=== PATIENT | female | born 1950 | race Caucasian/White ===

== ENCOUNTER → 2018-09-10 11:36 | Outpatient (CLI) | payer MEDICARE, OTHER, SELFPAY ==
[2018-09-10 12:35] LABS: Erythrocyte Sedimentation Rate 16 MM/HR (0-20)
[2018-09-10 14:03] LABS: Thyroid Stimulating Hormone 1.32 uIU/mL (0.47-4.68)
== END ==
PROVIDERS: PCP Internal Medicine; Visit Provider Family Medicine
DX: R51 Headache (principal); R42 Dizziness and giddiness
CPT/HCPCS: 36415; 84443; 85651

== ENCOUNTER → 2021-03-05 14:48 | Outpatient (CLI) | payer MEDICARE, OTHER, SELFPAY ==
--- NOTE | 2021-03-05 14:52 | DI.MRI.S_ITS ---
PROCEDURE: MR THORACIC SPINE WO CON INDICATIONS: Nerve root and plexus disorder, unspecified TECHNIQUE: Noncontrast sagittal T1 spine echo and T2 fast spin echo, sagittal STIR, axial T1 and T2 fast spin echo through the thoracic spine. COMPARISON: None. FINDINGS: Image quality: Diagnostic, with note made of motion artifact. Alignment and Curvature: There is normal bony alignment. Bone Marrow: Marrow is of normal overall signal. No acute vertebral body compression fractures. Spinal Cord: Visualized spinal cord is normal in size and signal. Paraspinous Soft Tissues: No paravertebral masses. Miscellaneous: At the T6-T7 level, there is a large central/right disc extrusion, with severe central canal narrowing. There is flattening of the ventral spinal cord, which is displaced to the left side. No neural foraminal narrowing is seen at this level. Milder degenerative changes are seen elsewhere. IMPRESSION: A prominent T6-T7 disc extrusion is seen, with severe central canal narrowing and ventral cord flattening, with displacement of the spinal cord to the left side. Dictated by: Lorenzo Urrutia M.D. on 03/07/2021 at 11:48 Approved by: Lorenzo Urrutia M.D. on 03/07/2021 at 11:51
== END ==
PROVIDERS: PCP Internal Medicine; Referring Provider Family Medicine; Visit Provider Family Medicine
DX: M51.24 Other intervertebral disc displacement, thoracic region (principal); R90.89 Other abnormal findings on diagnostic imaging of central nervous system
CPT/HCPCS: 72146

== ENCOUNTER → 2021-06-24 11:19 | Outpatient (CLI) | payer MEDICARE, OTHER, SELFPAY ==
--- NOTE | 2021-06-24 | DI.CT.S_ITS ---
PROCEDURE: CT THORACIC SPINE WO CON INDICATIONS: spondylosis radiculopathy, lumbar and thoracic TECHNIQUE: Noncontrast 3 mm thick sections acquired through the region of interest in the thoracic spine. Sagittal and coronal reformats were then constructed. For radiation dose reduction, the following was used: automated exposure control. COMPARISON: [facility], MR, MR THORACIC SPINE WO CON, 03/05/2021, 15:30. FINDINGS: Image quality: Excellent. Bones: There is normal overall bony alignment. No acute vertebral body compression fractures. No suspicious sclerotic or lytic bony lesions. Mild to moderate degenerative disc changes noted throughout the thoracic spine. There is a large chronic, calcified T6-T7 disc extrusion. Calcified extruded disc material causes severe central canal narrowing with compression of thoracic spinal cord. Moderate T8-T9 facet arthropathy. Severe T8-T9 neural foraminal narrowing with compression of the exiting T8 nerve roots. Soft tissues: No paravertebral masses or hematomas. Visualized posteromedial lungs appear clear. Small hiatal hernia. Status post cholecystectomy. IMPRESSION: 1. Large, chronic, calcified T6-T7 disc extrusion which causes severe central canal stenosis and compression of the thoracic spinal cord. 2. Severe bilateral T8-T9 neural foraminal narrowing with compression of the exiting T8 nerve roots. Dictated by: Mary Garcia MD, PhD on 06/24/2021 at 15:42 Approved by: Mary Garcia MD, PhD on 06/24/2021 at 15:46
--- NOTE | 2021-06-24 | DI.MRI.S_ITS ---
PROCEDURE: MR LUMBAR SPINE WO CON INDICATIONS: spondylosis radiculopathy, lumbar and thoracic TECHNIQUE: Noncontrast sagittal T1 spin echo and T2 fast echo, sagittal STIR, axial T1 and T2 fast spin echo through the lumbar spine. In cases with scoliosis, additional coronal T2 fast spin echo may be performed. COMPARISON: [facility], CR, XR LUMBAR SPINE 2 OR 3 VIEWS, 07/06/2017, 14:28. FINDINGS: Image quality: Excellent. Alignment and Curvature: 5 lumbar type vertebral bodies are present by plain film. Mild grade 1 retrolisthesis of T12 on L1, L1 on L2, and L2 on L3. Bone Marrow: Marrow is of normal overall signal. No acute vertebral body compression fractures. Moderate reactive signal within the endplates adjacent to the L4-L5 intervertebral disc. Mild reactive signal distant to the remaining lumbar and lower thoracic intervertebral discs. Spinal Cord: Conus medullaris terminates at the upper L2 level. Visualized cord demonstrates normal signal and size. Paraspinous Soft Tissues: No paravertebral masses. T12-L1: Moderate disc height loss and desiccation. Mild diffuse disc bulge. Mild facet and ligamentum flavum hypertrophy. Mild canal stenosis. No foraminal stenosis. L1-L2: Moderate disc desiccation. Mild disc height loss and diffuse disc bulge. Mild facet and ligamentum flavum hypertrophy. Mild canal stenosis. Mild bilateral foraminal stenosis. L2-L3: Moderate disc desiccation. Mild disc height loss and diffuse disc bulge. Mild facet and ligamentum flavum hypertrophy. Mild canal stenosis. Mild bilateral foraminal stenosis. L3-L4: Moderate disc desiccation. Mild disc height loss and diffuse disc bulge. Moderate facet and ligamentum flavum hypertrophy. Mild epidural lipomatosis. Severe canal stenosis. Moderate right and mild left foraminal stenosis. L4-L5: Moderate disc height loss and desiccation. Mild diffuse disc bulge. Mild facet and ligamentum flavum hypertrophy. Mild epidural lipomatosis. Mild canal stenosis. Mild bilateral foraminal stenosis. L5-S1: Moderate disc height loss and desiccation. Mild diffuse disc bulge. Mild bilateral facet hypertrophy. Mild canal stenosis. Mild left and moderate right foraminal stenosis. IMPRESSION: 1. Multilevel degenerative disc and facet disease, as well as ligamentum flavum hypertrophy and epidural lipomatosis. 2. Multilevel canal stenoses, worst at L3-L4, where there is severe canal stenosis. 3. Multilevel foraminal stenoses, worst at L3-L4 and L5-S1 where there are moderate foraminal stenoses. Dictated by: Fatemeh Stewart M.D. on 06/24/2021 at 12:47 Approved by: Fatemeh Stewart M.D. on 06/24/2021 at 13:29
== END ==
PROVIDERS: PCP Internal Medicine; Referring Provider Neurological Surgery; Visit Provider Neurological Surgery
DX: M47.26 Other spondylosis with radiculopathy, lumbar region (principal); M51.16 Intervertebral disc disorders with radiculopathy, lumbar region; M51.17 Intervertebral disc disorders with radiculopathy, lumbosacral region; M48.061 Spinal stenosis, lumbar region without neurogenic claudication; M48.07 Spinal stenosis, lumbosacral region; M54.50 Low back pain, unspecified
CPT/HCPCS: 72128; 72148

== ENCOUNTER 2023-01-21 20:32 | Emergency (ER) | payer MEDICARE, OTHER, SELFPAY ==
[2023-01-21 20:48] VITALS: BP 178/92; PULSE 107; RESP 18; TEMP 36.1; O2SAT 97
[2023-01-21 20:52] VITALS: PULSE 78
--- NOTE | 2023-01-21 20:52 | DI.RAD.S_ITS ---
PROCEDURE: XR WRIST LT MIN 3V INDICATIONS: Fall on outstretched LT hand. TECHNIQUE: 4 views of the wrist were acquired. COMPARISON: None. FINDINGS: Bones: Mildly comminuted, probably intra-articular fracture of the distal radial styloid, with volar angulation. Age indeterminate fracture of the ulnar styloid. Scaphoid view: Within normal limits. Soft tissues: No suspicious soft tissue calcifications. IMPRESSION: Angulated, probable intra-articular fracture of the radial styloid. Age indeterminate ulnar styloid fracture, probably chronic given well corticated margins. Dictated by: Orestes James M.D. on 01/21/2023 at 21:24 Approved by: Orestes James M.D. on 01/21/2023 at 21:25
--- NOTE | 2023-01-21 22:07 | ED_ITS ---
HPI - Extremity Injury (Upper) General Chief Complaint: Extremity Injury, Upper Stated Complaint: Wrist inj Time Seen by Provider: 01/21/23 21:13 Source: patient Mode of arrival: Family Vehicle Limitations: no limitations History of Present Illness HPI narrative: 72-year-old female history of hypertension, dyslipidemia, breast cancer with mastectomy, lumpectomy and reconstructive surgery and prior hysterectomy with oophorectomy for BRCA positive breast CA. presents with complaint of wrist injury. Patient was walking tripped and fell on an outstretched hand injuring her left wrist. She states has been painful since the fall. Patient states no numbness, no tingling or weakness. Pain with movement of the wrist in particular. She denies any injuries elsewhere. Denies hitting her head, no new neck or back pain. She states she has chronic neck pain always that has not changed. She denies any other chest pain, shortness of breath no GI or urinary symptoms. Patient states she takes lisinopril, atenolol, denies any anticoagulants. She states allergy to statins. She denies tobacco, alcohol or illicit. She presents with her today. Related Data Home Medications Medication Instructions Recorded Confirmed atenolol 50 mg tablet 50 mg PO DAILY 09/10/18 09/10/18 lisinopril 10 mg tablet 10 mg PO DAILY 09/10/18 09/10/18 Previous Rx's Medication Instructions Recorded acetaminophen 300 mg-codeine 15 mg 1 tab PO QID PRN pain #10 tabs 01/21/23 tablet Allergies Allergy/AdvReac Type Severity Reaction Status Date / Time No Known Drug Allergies Allergy Verified 01/21/23 20:51 Review of Systems Review of Systems ROS Unobtainable: All systems reviewed & are unremarkable except as noted in HPI and below Patient History Social History Smoking Status: Never smoker Smoking Status: Never smoker alcohol intake frequency: 0-2 drinks per day Substance Use Type: does not use Exam Narrative Exam Narrative: GENERAL: Alert and oriented x three, well-nourished female in mild distress. HEENT: Head normocephalic, atraumatic, EOMI, pupils reactive, face symmetric, moist mucous membranes NECK: Supple, full range of motion, no cervical vertebral tenderness. CARDIOVASCULAR: Regular rate and rhythm without murmurs, rubs or gallops. RESPIRATORY: Breath sounds equal bilaterally, no wheezes rales or rhonchi. ABDOMEN: Soft, nontender. Normoactive bowel sounds all 4 quadrants. No guarding or rebound, rigidity, no mass : No CVA tenderness EXTREMITIES: Normal range of motion except at the left wrist, patient has obvious deformity, swelling, no obvious ecchymosis,, no clubbing or edema. Neurovascularly intact. Patient has normal flexion, extension, abduction and adduction of the fingers, normal movement at the elbow and shoulder. 2+ radial pulse. Cap refill less than 2 seconds all 5 fingers with normal sensation throughout. NEUROLOGICAL: Cranial nerves II through XII grossly intact. Moving all extremities SKIN: Warm, dry, no petechiae, no rashes or lesions. Initial Vital Signs Initial Vital Signs: Vital Signs Temperature 97.0 F L 01/21/23 20:48 Pulse Rate 107 H 01/21/23 20:48 Respiratory Rate 18 01/21/23 20:48 Blood Pressure 178/92 H 01/21/23 20:48 Pulse Oximetry 97 01/21/23 20:48 Oxygen Delivery Method Room Air 01/21/23 20:48 Course Orders Ordered: ED Orders 01/21/23 20:52 XR wrist LT min 3V Stat Discontinued Medications Acetaminophen/Codeine Phosphate (Codeine/Acetaminophen 30/300 Tablet) 1 tab PO NOW ONE Stop: 01/21/23 22:43 Last Admin: 01/21/23 22:49 Dose: 1 tab Documented By: ES Vital Signs Vital signs: Vital Signs - 8 hr 01/21/23 22:53 Temperature 97.6 F Pulse Rate 82 Respiratory Rate 16 Blood Pressure 152/84 H Pulse Oximetry 97 Oxygen Delivery Method Room Air MDM - Extremity Injury (Upper) Imaging Data Extremity x-ray #1: Radiologist's Impression: Close Wrist X-Ray (Signed) Orestes James - 01/21/[address] (Signed) Mary Garcia - 06/24/21 Lumbar Spine MRI (Signed) Fatemeh Stewart - 06/24/21 Thoracic Spine MRI (Signed) Lorenzo Urrutia - 03/05/21 DI Result CC 07/27/18 Launch?[address] [address] XRay Report Signed Patient: Cristiana Cobb MR#: [id number] : 1950 Acct:[id number] Age/Sex: 72 / F Date of Service: 01/21/23 Loc: ED Accession Number: [id number] ?? Procedure: XR wrist LT min 3V Ordering Provider: Gillian Umaña D.O. PROCEDURE:? XR WRIST LT MIN 3V ? INDICATIONS: Fall on outstretched LT hand. ? TECHNIQUE:? 4 views of the wrist were acquired.? ? COMPARISON:? None. ? FINDINGS:? ? Bones:? Mildly comminuted, probably intra-articular fracture of the distal radial styloid, with volar angulation.? Age indeterminate fracture of the ulnar styloid. ? Scaphoid view:? Within normal limits. ? Soft tissues:? No suspicious soft tissue calcifications.? ? IMPRESSION:? Angulated, probable intra-articular fracture of the radial styloid. ? Age indeterminate ulnar styloid fracture, probably chronic given well corticated margins. ? ? Dictated by: Orestes James M.D. on 01/21/2023 at 21:24 ? ? Approved by: Orestes James M.D. on 01/21/2023 at 21:25?? MDM Narrative Medical decision making narrative: 72-year-old female ground level fall on outstretched hand who has obvious distal radial fracture. Patient had x-ray images were reviewed. Patient had hematoma block for comfort. She did not want IV pain medications procedural sedation. Deferred much for pain medication until after was treated. I did perform some mild retractions and adjustments to attempt to improve alignment. Patient's drove a vascularly intact pre and post. Splint was placed by nursing and myself. Discussed with patient will need follow up with Orthopedic surgery may require surgical repair in the future. All questions answered. Discussed return precautions. Discharge Plan Departure Patient Disposition: Home Clinical Impression: Fracture of wrist Instructions: DI for Wrist Fracture Activity Restrictions/Additional Instructions: Follow-up with orthopedic surgery, please call first thing in them morning to set up follow up in the next week. You may take 1 tablet every 6 hours of pain medication. This medication can make you sleepy do not drive, perform hazardous activities or make any major decisions while taking it. This medication will make you constipated please take a stool softener once to twice daily until stools are soft and regular. Prescription sent to the [facility] ([place], [place]) Pharmacy. Splint Care: Keep splint clean and dry. Elevated affected body part to decrease swelling. OK to use ice pack on the affected body part. Use for 15-20 minutes each time, for 5-6x per day. If you develop worsening pain, numbness, tingling, discoloration of the affected body part, loosen the splint by loosening the BALBIR wrap, and either see your doctor for an urgent re-assessment, or return to the Emergency Department. Return to the Emergency Department for any new or worsening symptoms. Prescriptions: New acetaminophen-codeine 300-15 mg tablet 1 tab PO QID PRN (Reason: pain) Qty: 10 0RF No Action lisinopril 10 mg tablet 10 mg PO DAILY atenolol 50 mg tablet 50 mg PO DAILY Referrals: Kia Cortez MD [Primary Care Provider] - Mariya Edmond MD [Physician] - Stand Alone Forms: Patient Portal/API
[2023-01-21] MEDS: CODEINE/ACETAMINOPHEN 30/300 TABLET 1 TAB PO (22:49)
[2023-01-21 22:53] VITALS: BP 152/84; PULSE 82; RESP 16; TEMP 36.4; O2SAT 97
== END 2023-01-21 22:54 | disposition home or self-care (01) ==
PROVIDERS: Emergency Provider Emergency Medicine; PCP Internal Medicine
DX: S52.502A Unspecified fracture of the lower end of left radius, initial encounter for closed fracture (principal); W18.30XA Fall on same level, unspecified, initial encounter; Y93.01 Activity, walking, marching and hiking
CPT/HCPCS: 73110; 99283

== ENCOUNTER 2023-01-26 09:11 | Day surgery (SDC) | payer MEDICARE, OTHER, SELFPAY ==
[2023-01-23 14:21] VITALS: BMI 35.2
[2023-01-26] VITALS (17 sets, daily range): BP systolic 132–163; BP diastolic 66–111; PULSE 74–95; RESP 11–17; TEMP 35.7–36.9; O2SAT 90–97; BMI 35.2
[2023-01-26] MEDS: LACTATED RINGERS 1,000 ML 42 ML IV ×3 (09:57→14:54)
--- NOTE | 2023-01-26 11:40 | PM.PREOP ---
Pre-operative Note Interval Note History & Physical reviewed/Exam performed by Physician: Yes Changes to H&P: No
[2023-01-26] MEDS: CEFAZOLIN 2 GM/100 ML PREMIX 100 ML IV (12:00)
--- NOTE | 2023-01-26 12:25 | SUR.OPER ---
Supine on padded OR bed, head on pillow, arms secured on padded arm boards at <90 degrees abduction, legs uncrossed, safety belt at thigh, tape over blanket over lower legs.
[2023-01-26] MEDS: BUPIVACAINE 0.25% (PF) 30 ML, EPINEPHrine 0.15 MG INJ (12:32)
[2023-01-26] MEDS: SCOPOLAMINE 1 PATCH TOP (13:52)
[2023-01-26] MEDS: ONDANSETRON 4 MG/2 ML INJ IV (13:55)
[2023-01-26] MEDS: fentaNYL 100 MCG/2 ML INJ IV ×4 (14:01→14:16)
[2023-01-26] MEDS: LORazepam 2 MG/ML INJ 0.5 MG IV (15:08)
--- NOTE | 2023-01-26 15:16 | P.OP_ITS ---
Operative Date/Time/Diagnoses Date of procedure: 01/26/23 Time of procedure: 12:00 Pre-op diagnosis: Closed intra-articular distal radius fracture, left Post-op diagnosis: same Procedure & Clinicians Procedure: Open reduction internal fixation 3 part intra-articular distal radius fracture, left CPT code 97085 Same procedure as scheduled: Yes Indications: Patient is a 72-year-old right-hand dominant female that sustained a ground level fall onto her left wrist sustaining an intra-articular displaced and shortened and angulated distal radius fracture. She is been indicated for open reduction internal fixation to help restore alignment decrease the risk of symptomatic malunion and dysfunction and posttraumatic arthritis. Risks and imani efits and alternatives to surgery were discussed. The risks and benefits of the procedure have been discussed with the patient and given the opportunity to ask questions. The risks of surgery include but are not limited to infection, malunion, nonunion, persistence of pain, damage to nerves and blood vessels, posttraumatic arthritis, DVT, PE, cardiopulmonary complications and . The patient expressed a thorough understanding of the risks and benefits of surgery and has elected to proceed. Consent was signed . Surgeon: Mariya Edmond Click Yes if Unassisted: Yes Anesthesia Type: General and Local Operative Notes Findings: Displaced intra-articular distal radius fracture. Small sliver radial styloid fragment and osteoporotic bone. Separate lunate intra-articular split 3 part fracture was reduced and pinned and stabilized with a standard 3 hole left volar locking plate from the [employer] Prosthetic devices, grafts, tissues, transplants, or devices: Arthrex 3 hole standard volar distal radius locking plate with nonlocking and locking 2.7 and 3.5 screws Estimated Blood Loss (mL): 10 Blood products transfused: none Tourniquet time (min): 49 Procedure in detail: Patient sustained a displaced distal radius fracture was indicated for operative reduction fixation to prevent malunion and prolonged function, loss of motion, wrist arthritis. The risks benefits and alternatives to procedure were discussed at length with the patient expressed understanding. These included but were not limited to bleeding, infection, damage to nerves, prominent hardware, pain, malunion, nonunion, blood clot, pulmonary embolism, and cardiovascular risk associated with general anesthesia. Consent was signed in the office. The patient was seen in the site of surgery was marked in the preoperative area. The patient was then brought to the operating room placed on the operative table in the supine position. Hand table was placed on the operative side. General anesthesia was administered. SCDs were 1 the legs and all bony prominence were padded. A well-padded radial keel tourniquet was placed. A formal time-out procedure was called confirming the patient's side and site of surgery administration of preoperative antibiotics and presence of consent. All agreed. The operative extremity was prepped and draped in the standard sterile fashion. An Esmarch was used for exsanguination and the brachial tourniquet was raised to 250 mm of mercury. Standard FCR approach to the wrist was drawn in the incision made. The FCR was exposed. The sheath was opened and the tendon was retracted ulnar protect the palmar cutaneous branch of the median nerve. Floor of the FCR was opened to expose the deep muscles. The FPL was retracted ulnar and the pronator quadratus was released from the radial border and reflected ulnar to expose the distal radius and distal fracture. Fracture was disimpacted and clean. The fracture was reduced with traction flexion ulnar deviation. An 045 K-wire was advanced percutaneously from the radial styloid just subchondral from radial to ulnar to hold the articular fragments. The styloid was comminuted. Reduction was checked fluoroscopy and radial inclination tilt was recreated. Three hole standard Arthrex, standard volar locking plate was selected and positioned and provisionally fixed with K-wires. Once this was satisfactory, a nonlocking screw was placed in the shaft hole and tightened K- wires into the distal plate to hold distal fixation.. Distal screws were then placed 1st with nonlocking screws followed by locking screws. These were placed carefully not to penetrate the dorsal cortex. Once this was completed and checked for prominence the final shaft screws were placed. Again with care to avoid prominence. Final intraoperative images were obtained reviewed demonstrating no evidence of hardware prominence. Wrist motion was checked and was full and maintained and stable DRUJ. The wound was then irrigated and closed in layers. Hemostasis was achieved and the tourniquet was released prior to closing. Three 0 Vicryl was used deep and subcutaneous and 3 O nylon in the skin. Sterile dressings with a volar splint were applied. There no immediate complications. Surgical counts were correct. The patient tolerated the procedure well was taken recovery room. Complications: none Post-operative Condition: stable Disposition: PACU Plan for aftercare: 2 lb weight. May use fingers and elbow. Splint will remain in place for 2 weeks then patient will be changed into a removable wrist brace and initiate physical therapy.
--- NOTE | 2023-01-26 15:40 | SUR.PHASEI ---
Block start time [1534] . Monitoring initiated and maintained throughout procedure. Oxygen and medications given per anesthesiologist instructions. Patient remained stable throughout procedure, no adverse reactions noted. Block end time [1537].
--- NOTE | 2023-01-26 15:51 | SUR.PHASEI ---
pt stated nausea resolved, attempted ice chips.
== END 2023-01-26 16:30 | disposition home or self-care (01) ==
PROVIDERS: Referring Provider Orthopaedic Surgery Foot and Ankle Surgery; Visit Provider Orthopaedic Surgery Foot and Ankle Surgery
PROC: (CPT 25609; principal; 2023-01-26 11:00)
DX: S52.572A Other intraarticular fracture of lower end of left radius, initial encounter for closed fracture (principal); W01.0XXA Fall on same level from slipping, tripping and stumbling without subsequent striking against object, initial encounter
CPT/HCPCS: 25609; 64450; C1713; J0171; J0690; J1100; J2060; J2405; J2704; J3010

== ENCOUNTER → 2023-09-17 06:37 | Outpatient (CLI) | payer MEDICARE, OTHER, SELFPAY ==
--- NOTE | 2023-09-17 06:39 | DI.US.S_ITS ---
PROCEDURE: US PELVIC COMPLETE INDICATIONS: INTRA-VAGINAL LUMP AT PUBIC SYMPHASIS TECHNIQUE: Real-time scanning was performed of the pelvic organs, with image documentation. Additional endovaginal scanning was necessary due to incomplete visualization of the adnexal and endometrial structures by transabdominal scanning. COMPARISON: None. FINDINGS: Uterus: Uterus is surgically absent. Ovaries: Ovaries are surgically absent. No sonographic evidence of an adnexal mass. Other: No pathologic free abdominal or pelvic fluid. IMPRESSION: Hysterectomy and bilateral oophorectomy. No sonographic evidence of an adnexal mass. We strive to produce accurate, complete, and clear reports of imaging services. To assist us in improving patient care, this report was composed using standard report templates and voice recognition software. Therefore, it may contain abnormal punctuation, insertions and/or omissions. Occasional wrong-word or sound-alike substitutions may occur. Though we review the report and make efforts to correct it, we do recommend that the report be read carefully in proper context to recognize any text inaccuracies. Dictated by: Zach Gómez M.D. on 09/17/2023 at 10:10 Approved by: Zach Gómez M.D. on 09/17/2023 at 11:01
== END ==
LOC: US 06:38
PROVIDERS: PCP Family Medicine; Referring Provider Family Medicine; Visit Provider Family Medicine
DX: R33.8 Other retention of urine (principal); R19.00 Intra-abdominal and pelvic swelling, mass and lump, unspecified site; Z90.710 Acquired absence of both cervix and uterus; Z90.722 Acquired absence of ovaries, bilateral
CPT/HCPCS: 76830; 76856

== ENCOUNTER 2024-02-14 15:20 | Emergency (ER) | payer MEDICARE, OTHER, SELFPAY ==
[2024-02-14 15:23] VITALS: BP 184/92; PULSE 87; RESP 18; TEMP 37; O2SAT 95; BMI 35.2
--- NOTE | 2024-02-14 15:27 | DI.CT.S_ITS ---
PROCEDURE: CT CERVICAL SPINE WO CON INDICATIONS: fall/hit head/no thinners TECHNIQUE: Noncontrast 3 mm thick sections acquired from the skull base to the T4 level. Sagittal and coronal reformats were then constructed. For radiation dose reduction, the following was used: automated exposure control, adjustment of mA and/or kV according to patient size. COMPARISON: [facility], CT, CT HEAD/BRAIN WO CON, 02/14/2024, 15:43. FINDINGS: Image quality: Excellent. Bones: No fractures or dislocations. Visualized superior ribs are intact. Cervical spondylosis. Soft tissues: Prevertebral soft tissues are normal in thickness. No paravertebral hematomas. No apical pneumothoraces. IMPRESSION: No displaced cervical fracture or traumatic subluxation. Comment: Please note that CT head images are found under the CT cervical spine heading, and that the CT cervical spine images are found under the CT head heading. Please refer to both sets of images when reviewing this case. Dictated by: Tato Chaudhry M.D. on 02/14/2024 at 16:10 Approved by: Tato Chaudhry M.D. on 02/14/2024 at 16:12
--- NOTE | 2024-02-14 15:27 | DI.CT.S_ITS ---
PROCEDURE: CT HEAD/BRAIN WO CON INDICATIONS: fall/hit head/no thinners TECHNIQUE: Noncontrast 4.5 mm thick angled axial sections acquired from the foramen magnum to the vertex, with coronal and sagittal reformats. For radiation dose reduction, the following was used: automated exposure control, adjustment of mA and/or kV according to patient size. COMPARISON: [facility], CT, CT CERVICAL SPINE WO CON, 02/14/2024, 15:43. FINDINGS: Image quality: Diagnostic. CSF spaces: Basal cisterns are patent. No extra-axial fluid collections. The ventricles are symmetric in size and shape. Brain: No intracranial bleeds or masses. There is cerebral volume loss for age, with resultant ventricular and sulcal prominence. There are periventricular and deep white matter chronic small vessel ischemic changes. There is intracranial internal carotid artery atherosclerosis. Skull and face: Calvarium and visualized facial bones appear intact, without suspicious lesions. Sinuses: Visualized sinuses and mastoids are clear. IMPRESSION: No acute intracranial pathology. Comment: The head CT images are under the heading of cervical spine CT, and the cervical spine images are under the heading of head CT. Please access both studies when reviewing this case. Dictated by: Tato Chaudhry M.D. on 02/14/2024 at 16:07 Approved by: Tato Chaudhry M.D. on 02/14/2024 at 16:09
--- NOTE | 2024-02-14 16:40 | ED_ITS ---
HPI - Fall <Estelita Faria PA-C - Last Filed: 02/14/24 16:58> General Chief Complaint: Fall Stated Complaint: Fall, hit head, headache, no blood thinners Time Seen by Provider: 02/14/24 16:40 Source: patient and family Mode of arrival: Ambulatory History of Present Illness HPI Narrative: Patient is a very pleasant 73-year-old female that presents to the emergency department today with her for complaints headache, fall that she sustained 2 days ago. And bruising to the right forehead. Patient states she was home, does not know she tripped on something or caught her foot. She does know that she did not faint, but the next thing she knew she would fallen and hit her face on the linoleum floor. She did not break her glasses, she did hit her knee as well as her face. She did not have any loss of consciousness. She did not present to the emergency room department because she did not feel there was any issues or problems, she has been taking eugv-lyw-oyykwsn Tylenol with some relief of her headache. However she continued to have headache today, presented to the emergency department just to be checked out. Patient denies visual changes, her glasses are stable and are not broken. She does not have any unsteadiness in her gait. She has had no difficulty ambulating. She has no other symptoms except headache, and some mild left knee pain. Related Data Home Medications Medication Instructions Recorded Confirmed amlodipine 5 mg tablet 5 mg PO DAILY 01/23/23 01/26/23 dulaglutide 1.5 mg/0.5 mL 1.5 mg SUBCUT WEEKLY 01/23/23 01/26/23 subcutaneous pen injector ([facility]) losartan 100 mg tablet 100 mg PO DAILY 01/23/23 01/26/23 omeprazole 20 mg capsule,delayed 20 mg PO DAILY PRN Acid Reflux 01/23/23 01/26/23 release propranolol 80 mg capsule,24 80 mg PO DAILY 01/23/23 01/26/23 hr,extended release Previous Rx's Medication Instructions Recorded acetaminophen 300 mg-codeine 15 mg 1 tab PO QID PRN pain #10 tabs 01/21/23 tablet hydrocodone 5 mg-acetaminophen 325 1 tab PO Q4H PRN pain #30 tabs 01/26/23 mg tablet ondansetron 4 mg disintegrating 4 mg PO Q8H PRN nausea and 01/26/23 tablet vomiting #5 tabs Allergies Allergy/AdvReac Type Severity Reaction Status Date / Time Gbpumrj-HKU-RlI Reductase Allergy Mild Verified 01/26/23 09:48 Inhibitor Review of Systems <Estelita Faria PA-C - Last Filed: 02/14/24 16:58> Review of Systems Narrative: Negative except as above Musculoskeletal Comments: Knee pain and left knee abrasion. Neurologic Comments: Headache from a fall that she sustained today Patient History <Estelita Faria PA-C - Last Filed: 02/14/24 16:58> Medical History GERD (gastroesophageal reflux disease) Hx of breast cancer Hyperlipidemia Hypertension Palpitations Diabetes Surgical History History of reconstruction of right breast H/O mastectomy History of hysterectomy Hx of cholecystectomy H/O section Social History household members: spouse Smoking Status: Never smoker alcohol intake: current Smoking Status: Never smoker alcohol intake frequency: holidays/special occasions only Substance Use Type: does not use Exam <Estelita Faria PA-C - Last Filed: 02/14/24 16:58> Initial Vital Signs Initial Vital Signs: Vital Signs Temperature 98.6 F 02/14/24 15:23 Pulse Rate 87 02/14/24 15:23 Respiratory Rate 18 02/14/24 15:23 Blood Pressure 184/92 H 02/14/24 15:23 Pulse Oximetry 95 02/14/24 15:23 Oxygen Delivery Method Room Air 02/14/24 15:23 Const General: cooperative, healthy appearing, comfortable, well developed, well groomed, No acute distress, No in distress and No anxious HENTX Head: normocephalic and contusion (Right forehead has some bruising that is noted) Ears: hearing grossly normal bilaterally, external ears normal, TM's normal bilaterally, TM normal on the right, TM normal on the left and other (No blood behind the tympanic membranes bilaterally) Eyes General: Yes appearance normal, both eyes and all related structures Sclera: sclerae normal Pupils: PERRL EOM: EOM intact bilaterally Neck Neck: normal visual inspection, full ROM, supple and No tender Skin Other: Bruising to the right forehead. Neuro General: patient alert, patient awake, patient oriented x3, gait normal and tone normal Cognition: normal cognition Speech: speech normal Gait: normal gait Motor: muscle tone normal throughout and strength 5/5 throughout Extrem Other: Range of motion, strength, pulses, cap refill is preserved in the upper and lower extremities. Patient has 2 small abrasions to the left knee. Psych Appearance: grossly normal and well kempt Mental Status: mental status grossly normal Speech and Movement: speech and movement normal Mood: congruent mood Affect: normal affect Attitude: cooperative Thought Process: normal Thought Content: normal Judgment: judgment good <DO Gabe Henderson Last Filed: 02/24/24 07:10> Initial Vital Signs Initial Vital Signs: Vital Signs Temperature 98.6 F 02/14/24 15:23 Pulse Rate 87 02/14/24 15:23 Respiratory Rate 18 02/14/24 15:23 Blood Pressure 184/92 H 02/14/24 15:23 Pulse Oximetry 95 02/14/24 15:23 Oxygen Delivery Method Room Air 02/14/24 15:23 Course <TITO Cruz Last Filed: 02/14/24 16:58> Orders Ordered: ED Orders 02/14/24 15:27 CT cervical spine wo con Stat CT head/brain wo con Stat Vital Signs Vital signs: Vital Signs - 8 hr 02/14/24 15:23 Temperature 98.6 F Pulse Rate 87 Respiratory Rate 18 Blood Pressure 184/92 H Pulse Oximetry 95 Oxygen Delivery Method Room Air Reviewed <DO Gabe Henderson Last Filed: 02/24/24 07:10> Orders Ordered: ED Orders 02/14/24 15:27 CT cervical spine wo con Stat CT head/brain wo con Stat Vital Signs Vital signs: Vital Signs - 8 hr 02/14/24 15:23 Temperature 98.6 F Pulse Rate 87 Respiratory Rate 18 Blood Pressure 184/92 H Pulse Oximetry 95 Oxygen Delivery Method Room Air MDM - Fall <TITO Cruz Last Filed: 02/14/24 16:58> Imaging Data CT - cervical spine: Radiologist's Impression: [address] [address] [address] Scan Report Signed Patient: Cristiana Cobb MR#: [id number] : 1950 Acct:[id number] Age/Sex: 73 / F Date of Service: 02/14/24 Loc: ED Accession Number: [id number] Procedure: CT cervical spine wo con Ordering Provider: Gillian Umaña D.O. PROCEDURE: CT CERVICAL SPINE WO CON INDICATIONS: fall/hit head/no thinners TECHNIQUE: Noncontrast 3 mm thick sections acquired from the skull base to the T4 level. Sagittal and coronal reformats were then constructed. For radiation dose reduction, the following was used: automated exposure control, adjustment of mA and/or kV according to patient size. COMPARISON: [facility], CT, CT HEAD/BRAIN WO CON, 02/14/2024, 15:43. FINDINGS: Image quality: Excellent. Bones: No fractures or dislocations. Visualized superior ribs are intact. Cervical spondylosis. Soft tissues: Prevertebral soft tissues are normal in thickness. No paravertebral hematomas. No apical pneumothoraces. IMPRESSION: No displaced cervical fracture or traumatic subluxation. Comment: Please note that CT head images are found under the CT cervical spine heading, and that the CT cervical spine images are found under the CT head heading. Please refer to both sets of images when reviewing this case. Dictated by: Tato Chaudhry M.D. on 02/14/2024 at 16:10 Approved by: Tato Chaudhry M.D. on 02/14/2024 at 16:12 CT scan - head: Radiologist's Impression: [address] [address] [address] Scan Report Signed Patient: Cristiana Cobb MR#: [id number] : 1950 Acct:[id number] Age/Sex: 73 / F Date of Service: 02/14/24 Loc: ED Accession Number: [id number] Procedure: CT head/brain wo con Ordering Provider: Gillian Umaña D.O. PROCEDURE: CT HEAD/BRAIN WO CON INDICATIONS: fall/hit head/no thinners TECHNIQUE: Noncontrast 4.5 mm thick angled axial sections acquired from the foramen magnum to the vertex, with coronal and sagittal reformats. For radiation dose reduction, the following was used: automated exposure control, adjustment of mA and/or kV according to patient size. COMPARISON: [facility], CT, CT CERVICAL SPINE WO CON, 02/14/2024, 15:43. FINDINGS: Image quality: Diagnostic. CSF spaces: Basal cisterns are patent. No extra-axial fluid collections. The ventricles are symmetric in size and shape. Brain: No intracranial bleeds or masses. There is cerebral volume loss for age, with resultant ventricular and sulcal prominence. There are periventricular and deep white matter chronic small vessel ischemic changes. There is intracranial internal carotid artery atherosclerosis. Skull and face: Calvarium and visualized facial bones appear intact, without suspicious lesions. Sinuses: Visualized sinuses and mastoids are clear. IMPRESSION: No acute intracranial pathology. Comment: The head CT images are under the heading of cervical spine CT, and the cervical spine images are under the heading of head CT. Please access both studies when reviewing this case. Dictated by: Tato Chaudhry M.D. on 02/14/2024 at 16:07 Approved by: Tato Chaudhry M.D. on 02/14/2024 at 16:09 [facility] Narrative Medical decision making narrative: Pleasant 73-year-old female presents to the emergency department with headache and left knee pain after fall that she sustained 2 days ago. Taken Tylenol home with some relief of her headache. However continued to have headache today came to the emergency room department to be evaluated and checked. Not on blood thinners. No visual changes. No changes in her mentation, gait, or speech. Head CT is negative for any substantial acute findings CT of the neck cervical spine is negative for any substantial acute findings Patient has a noticeable bruise to the right forehead. Exam is negative for any substantial findings, Neuro exam is negative Supportive therapy education, ED precautions. Akkr-jdp-vhnlmdp nonsteroidals Differential diagnosis; fall, scalp contusion, concussion. Discharge Plan Departure Patient Disposition: Home Clinical Impression: Contusion of scalp Qualifiers: Encounter type: initial encounter Qualified Code(s): S00.03XA - Contusion of scalp, initial encounter Concussion Qualifiers: Encounter type: initial encounter Loss of consciousness presence/duration: without LOC Qualified Code(s): S06.0X0A - Concussion without loss of consciousness, initial encounter Fall Qualifiers: Encounter type: initial encounter Qualified Code(s): W19.XXXA - Unspecified fall, initial encounter Activity Restrictions/Additional Instructions: Your head CT is negative for any acute findings, your cervical CT is negative for any acute findings. Ctdk-sis-fsilenz ibuprofen or Tylenol for discomfort and pain. Ice to the face. You have bruising to the right forehead, do not be surprised if you have some bruising or even some movement down into the right eye associated with the fall. You have signs and symptoms of a concussion with headache and kind of just feeling a little bit off. Unfortunately I can not tell you how long the symptoms are going to last. They are person to person dependent unfortunately they may come and go, they might be there for a couple of days or even a longer period of time. However, I think it is reassuring that your scans are-2 days after your injury and fall. Please make arrangements to follow up with her primary care doctor. Return to the emergency department as needed. Prescriptions: No Action acetaminophen-codeine 300-15 mg tablet 1 tab PO QID PRN (Reason: pain) Qty: 10 0RF amlodipine 5 mg tablet 5 mg PO DAILY propranolol 80 mg capsule,extended release 24hr 80 mg PO DAILY omeprazole 20 mg capsule,delayed release(DR/EC) 20 mg PO DAILY PRN (Reason: Acid Reflux) losartan 100 mg tablet 100 mg PO DAILY Trulicity 1.5 mg/0.5 mL pen injector 1.5 mg SUBCUT WEEKLY hydrocodone-acetaminophen 5-325 mg tablet 1 tab PO Q4H PRN (Reason: pain) Qty: 30 0RF Rx Instructions: postop exempt ondansetron 4 mg tablet,disintegrating 4 mg PO Q8H PRN (Reason: nausea and vomiting) Qty: 5 1RF Referrals: Tyler King DO [Primary Care Provider] - Stand Alone Forms: Patient Portal/API ED Sign-out <Gillian Umaña DO - Last Filed: 02/24/24 07:10> Cosign ED Attending Cosrenéeature Attestation: I was immediately available in the department for consultation.
--- NOTE | 2024-02-14 16:51 | PC.NURSE ---
Pt was seen and assessed by provider prior to Rn getting into the room.
[2024-02-14 16:59] VITALS: BP 163/84; PULSE 82; RESP 18; O2SAT 95
== END 2024-02-14 17:00 | disposition home or self-care (01) ==
PROVIDERS: Emergency Provider Physician Assistant; PCP Family Medicine
DX: S06.0X0A Concussion without loss of consciousness, initial encounter (principal); S00.03XA Contusion of scalp, initial encounter; M25.562 Pain in left knee; W01.0XXA Fall on same level from slipping, tripping and stumbling without subsequent striking against object, initial encounter
CPT/HCPCS: 70450; 72125; 99281; 99284

== ENCOUNTER 2024-07-25 10:33 | Emergency (ER) | payer MEDICARE, OTHER, SELFPAY ==
[2024-07-25] VITALS (22 sets, daily range): BP systolic 134–179; BP diastolic 68–94; PULSE 68–87; RESP 8–24; TEMP 36.1; O2SAT 93–98; BMI 34.4
--- NOTE | 2024-07-25 11:51 | ED_ITS ---
HPI - Headache General Chief Complaint: Headache Stated Complaint: Headache , hard time hearing out of right ear Time Seen by Provider: 07/25/24 11:16 History of Present Illness HPI Narrative: Patient brought here by for complaints of waxing and waning not worst of life right-sided headache she describes as dull and achy. Currently 09/04. No relief with Excedrin. No prior history of migraine headache. No new stressors. Did have head injury in the last year but no headaches from that. Does have history of wax impaction to the right ear which is not new. Has had off and on hearing changes with this headache. No rash. No slurred speech or facial droop. No limb numbness tingling or weakness. Fast exam is negative. Patient in no distress. No recent illness, nausea or vomiting or diarrhea. Related Data Home Medications Medication Instructions Recorded Confirmed amlodipine 5 mg tablet 5 mg PO DAILY 01/23/23 04/14/24 dulaglutide 1.5 mg/0.5 mL 1.5 mg SUBCUT WEEKLY 01/23/23 01/26/23 subcutaneous pen injector ([facility]) losartan 100 mg tablet 100 mg PO DAILY 01/23/23 04/14/24 omeprazole 20 mg capsule,delayed 20 mg PO DAILY PRN Acid Reflux 01/23/23 04/14/24 release propranolol 80 mg capsule,24 80 mg PO DAILY 01/23/23 04/14/24 hr,extended release Previous Rx's Medication Instructions Recorded acetaminophen 300 mg-codeine 15 mg 1 tab PO QID PRN pain #10 tabs 01/21/23 tablet ondansetron 4 mg disintegrating 4 mg PO Q8H PRN nausea and 01/26/23 tablet vomiting #5 tabs Allergies Allergy/AdvReac Type Severity Reaction Status Date / Time [place]-FGE-CbC Reductase Allergy Mild Verified 07/25/24 10:48 Inhibitor Review of Systems Review of Systems Narrative: GENERAL: Negative chills, fatigue, malaise, fever, sweats. HEENT: Negative sinus pain, positive ear pain, negative sore throat, RESPIRATORY: Negative dyspnea, cough CARDIOVASCULAR: Negative chest pain, palpitations GASTROINTESTINAL: Negative nausea, vomiting, abdominal pain : Negative dysuria, frequency, hematuria MUSCULOSKELETAL: Negative muscle or bony pain SKIN: Negative rash, skin lesions NEUROLOGIC: Negative weakness, numbness, positive headache ROS Unobtainable: All systems reviewed & are unremarkable except as noted in HPI and below Patient History Medical History GERD (gastroesophageal reflux disease) Hx of breast cancer Hyperlipidemia Hypertension Palpitations Diabetes Surgical History History of reconstruction of right breast H/O mastectomy History of hysterectomy Hx of cholecystectomy H/O section Social History household members: spouse Smoking Status: Never smoker alcohol intake: current Smoking Status: Never smoker alcohol intake frequency: holidays/special occasions only Exam Narrative Exam Narrative: GENERAL: in no distress, not toxic not dyspneic HEAD: Normocephalic. EYES: Pupils equal round ENT: Mucous membranes moist. Examination right ear occluded by earwax. Tragus nontender. Mastoid nontender. NECK: Trachea midline. CARDIOVASCULAR: Regular rate and rhythm RESPIRATORY: Clear to auscultation. Breath sounds equal bilaterally. No wheezes, rales, or rhonchi. GASTROINTESTINAL: Abdomen soft, non-tender EXTREMITIES: No gross deformities. BACK: No flank tenderness. NEURO: AOx4. Clear speech, no facial droop light touch intact to bilateral face hands and legs strong equal security ambassador negative pronator drift. Fast exam is negative SKIN: Warm and dry PSYCH: Not anxious, is cooperative Initial Vital Signs Initial Vital Signs: Vital Signs Temperature 97.0 F L 07/25/24 10:48 Pulse Rate 82 07/25/24 10:48 Respiratory Rate 14 07/25/24 10:48 Blood Pressure 179/84 H 07/25/24 10:48 Pulse Oximetry 96 07/25/24 10:48 Oxygen Delivery Method Room Air 07/25/24 10:48 Course Orders Ordered: Discontinued Medications Hydrogen Peroxide/Benzyl Alcohol (Hydrogen Peroxide 473 Ml Solution) 30 ml TOP NOW ONE Stop: 07/25/24 12:23 Last Admin: 07/25/24 13:24 Dose: 30 ml Documented By: SPF Ketorolac Tromethamine (Ketorolac 30 Mg/Ml Vial) 15 mg IV NOW ONE Stop: 07/25/24 11:51 Last Admin: 07/25/24 13:25 Dose: 15 mg Documented By: SPF Sodium Chloride (Sodium Chloride 0.9% Flush) 50 ml IV NOW ONE Stop: 07/25/24 15:30 Last Admin: 07/25/24 15:45 Dose: 50 ml Documented By: SUSAN Vital Signs Vital signs: Vital Signs - 8 hr 07/25/24 10:48 07/25/24 10:54 07/25/24 11:00 Temperature 97.0 F L Pulse Rate 82 Respiratory Rate 14 Blood Pressure 179/84 H 170/83 H Pulse Oximetry 96 95 Oxygen Delivery Method Room Air 07/25/24 11:00 07/25/24 11:30 07/25/24 11:31 Temperature Pulse Rate 74 68 Respiratory Rate 9 L 16 Blood Pressure 141/68 H Pulse Oximetry 95 97 Oxygen Delivery Method 07/25/24 11:31 07/25/24 12:00 07/25/24 12:00 Temperature Pulse Rate 77 70 Respiratory Rate 17 Blood Pressure 146/71 H Pulse Oximetry 97 96 Oxygen Delivery Method 07/25/24 12:25 07/25/24 12:25 07/25/24 12:30 Temperature Pulse Rate 78 Respiratory Rate 18 Blood Pressure 151/69 H 151/74 H Pulse Oximetry 96 Oxygen Delivery Method 07/25/24 12:30 07/25/24 13:00 07/25/24 13:00 Temperature Pulse Rate 70 69 Respiratory Rate 16 19 Blood Pressure 135/68 Pulse Oximetry 96 96 Oxygen Delivery Method 07/25/24 13:30 07/25/24 14:00 07/25/24 14:30 Temperature Pulse Rate 71 69 73 Respiratory Rate 17 Blood Pressure Pulse Oximetry 93 94 97 Oxygen Delivery Method 07/25/24 14:40 07/25/24 14:40 07/25/24 15:00 Temperature Pulse Rate 81 71 Respiratory Rate 8 L Blood Pressure 134/94 H Pulse Oximetry 98 97 Oxygen Delivery Method 07/25/24 15:02 07/25/24 15:03 07/25/24 15:03 Temperature Pulse Rate 77 75 Respiratory Rate 24 Blood Pressure 144/71 H Pulse Oximetry 98 97 Oxygen Delivery Method 07/25/24 15:30 07/25/24 15:30 07/25/24 15:40 Temperature Pulse Rate 77 Respiratory Rate 17 Blood Pressure 154/86 H 150/74 H Pulse Oximetry 96 Oxygen Delivery Method 07/25/24 15:40 07/25/24 16:00 07/25/24 16:00 Temperature Pulse Rate 81 74 Respiratory Rate 19 20 Blood Pressure 153/74 H Pulse Oximetry 97 94 Oxygen Delivery Method Room Air MDM - Headache Lab Data 07/25/24 13:15 07/25/24 13:15 Labs: Lab Results 07/25/24 Range/Units 13:15 WBC 7.0 (4.5-11.0) X10^3/uL RBC 4.85 (4.0-5.2) X10^6/uL Hgb 13.2 (12.0-16.0) g/dL Hct 40.7 (36-46) % MCV 83.9 (80-100) fL MCH 27.3 (26-34) PG MCHC 32.6 (30-36) % RDW 14.3 (11.6-14.8) % Plt Count 292 (150-400) X10^3/uL Neut % (Auto) 63.6 (50-75) % Lymph % (Auto) 27.2 (25-40) % [place] % (Auto) 6.2 (3-14) % Eos % (Auto) 2.6 (2-4) % Baso % (Auto) 0.4 (0-2) % Neut # (Auto) 4500 (6440-3000) /uL Lymph # (Auto) 1900 (9967-3102) /uL [place] # (Auto) 400 (0-900) /uL Eos # (Auto) 200 (0-450) /uL Baso # (Auto) 0 (0-100) /uL Sodium 139 (137-145) mmol/L Potassium 4.3 (3.4-5.1) mmol/L Chloride 102 (98-107) mmol/L Carbon Dioxide 27 (22-32) mmol/L BUN 18 H (7-17) mg/dL Creatinine 0.69 (0.52-1.04) mg/dL Estimated GFR > 60 (>60) mL/min BUN/Creatinine Ratio 26.1 H (6-22) Glucose 132 H (80-110) mg/dL Calcium 9.7 (8.4-10.2) mg/dL Total Bilirubin 0.6 (0.2-1.3) mg/dL AST 48 H (14-36) IU/L ALT 48 H (<35) IU/L Alkaline Phosphatase 74 (38-126) U/L Total Protein 8.0 (6.3-8.2) g/dL Albumin 4.7 (3.5-5.0) g/dL Globulin 3.3 (1.7-4.1) g/dL Albumin/Globulin Ratio 1.4 (1.0-2.8) Imaging Data CT scan - head: Radiologist's Impression: [address] [address] [address] Scan Report Signed Patient: Cristiana Cobb MR#: [id number] : 1950 Acct:[id number] Age/Sex: 74 / F Date of Service: 07/25/24 Loc: ED Accession Number: [id number] Procedure: CT head/brain wo con Ordering Provider: Klaus Nix MD PROCEDURE: CT HEAD/BRAIN WO CON INDICATIONS: Right side headache TECHNIQUE: Noncontrast 4.5 mm thick angled axial sections acquired from the foramen magnum to the vertex, with coronal and sagittal reformats. For radiation dose reduction, the following was used: automated exposure control, adjustment of mA and/or kV according to patient size. COMPARISON: [facility], CT, CT HEAD/BRAIN WO CON, 02/14/2024, 15:43. FINDINGS: Image quality: Diagnostic. CSF spaces: Basal cisterns are patent. No extra-axial fluid collections. The ventricles are symmetric in size and shape. Brain: No intracranial bleeds or masses. There is cerebral volume loss for age, with resultant ventricular and sulcal prominence. There are periventricular and deep white matter chronic small vessel ischemic changes. There is intracranial internal carotid artery atherosclerosis. Skull and face: Calvarium and visualized facial bones appear intact, without suspicious lesions. Sinuses: Visualized sinuses and mastoids are clear. IMPRESSION: 1. No acute intracranial process. 2. Moderate atrophy and chronic microvascular ischemic changes. Dictated by: Sadie Amaya M.D. on 07/25/2024 at 12:43 Approved by: Sadie Amaya M.D. on 07/25/2024 at 12:43 CTA - brain/neck: Radiologist's Impression: [address] [address] [address] Scan Report Signed Patient: Cristiana Cobb MR#: [id number] : 1950 Acct:[id number] Age/Sex: 74 / F Date of Service: 07/25/24 Loc: ED Accession Number: [id number] Procedure: CT angio head and neck Ordering Provider: Klaus Nix MD PROCEDURE: CT ANGIO HEAD AND NECK INDICATIONS: Right-sided headache TECHNIQUE: After the administration of intravenous contrast, 1 mm thick sections acquired from the aortic arch through the [place] of [place]. 3-dimensional tkvohkz-bklnnpivj-ffjifijrdz (MIP) and/or volume rendering reformats were acquired of the central intracranial vasculature and neck separately. For radiation dose reduction, the following was used: automated exposure control, adjustment of mA and/or kV according to patient size. COMPARISON: [facility], CT, CT HEAD/BRAIN WO CON, 07/25/2024, 11:54. FINDINGS: Image quality: Diagnostic. BRAIN: See separately dictated CT head report of 07/25/2024.. HEAD CT ANGIOGRAPHY: Anterior circulation: Intracranial internal carotid arteries are normal in size and flow. The flow within the paired anterior cerebral arteries is normal and symmetric. The flow within the middle cerebral arteries is normal and symmetric. The anterior communicating artery is seen. No aneurysms are seen. Posterior circulation: Prominent left vertebral artery dominance. Visualized portions of the vertebral arteries demonstrate normal caliber, and join to form a normal appearing basilar artery. Flow within the posterior cerebral arteries is normal and symmetric. No aneurysms are seen. NECK CT ANGIOGRAPHY: Carotid system: The great vessels demonstrate a conventional anatomy as they arise from the aortic arch. The origins of the common carotid arteries appear patent. The common carotid arteries demonstrate normal caliber and courses. The bifurcation regions are both widely patent. The internal carotid arteries demonstrate normal calibers and courses. Posterior circulation: The origins of the vertebral arteries both appear widely patent. The more superior extracranial portions of both vertebral arteries also demonstrate normal courses and calibers. They join to form a normal appearing basilar artery. Soft tissues: Visualized neck soft tissues demonstrate no suspicious abnormalities. Bones: No suspicious bony lesions. Visualized cervical spine appears normally aligned. IMPRESSION: No significant intracranial arterial abnormality is seen. No significant abnormality is seen within the arteries of the neck. Any quantitative measurements of stenosis were performed using NASCET criteria. Dictated by: Sadie Amaya M.D. on 07/25/2024 at 16:09 Approved by: Sadie Amaya M.D. on 07/25/2024 at 16:10 [facility] Narrative Medical decision making narrative: Patient brought here by for complaints of waxing and waning not worst of life right-sided headache she describes as dull and achy. Currently 09/04. No relief with Excedrin. No prior history of migraine headache. No new stressors. Did have head injury in the last year but no headaches from that. Does have history of wax impaction to the right ear which is not new. Has had off and on hearing changes with this headache. No rash. No slurred speech or facial droop. No limb numbness tingling or weakness. Fast exam is negative. Patient in no distress. No recent illness, nausea or vomiting or diarrhea. After history and exam, CBC CMP Toradol CT head ear irrigation Right ear does have wax impaction can not visualize canal. No rash no vesicles negative Genao's palsy findings [facility] Medical records reviewed: No recent visit for this complaint Differential considered: Includes but not limited to migraine brain tumor stroke wax impaction, shingles, Genao's palsy Lab Test results independently reviewed as above. Pertinent findings: WBC 7.0 hemoglobin 13.2, sodium 139 potassium 4.3 BUN 18 creatinine 0.69 Imaging studies independently reviewed: CT head no acute finding CT angiogram head and neck no acute finding Consultations: None indicated at this time Treatments: Toradol, right ear irrigation, I was able to use 50 50 peroxide and normal saline to irrigate right ear and use curette to remove good amount of wax. Patient hearing much better afterwards. No bleeding. Re-evaluations: 5:00 p.m.. Patient feeling much better. He ear irrigation was successful with removal of wax and she can hear better out of it. No bleeding from the ear. She rates her headache 1/10. She feels much better. Reviewed with her possible developing a migraines after her head injury concussion in January 2024 May develop. Return precautions. She desires discharge home. Discussion: Appropriate for discharge home exam is reassuring. Return precautions reviewed patient. Headache 1/10 at time of discharge feeling much better. Hearing much better after wax removal on the right ear. Headache and ear wax impaction on the same side, right side. Return precautions reviewed. She desires discharge home. Diagnosis: Headache, wax impaction Discharge Plan Departure Patient Disposition: Home Clinical Impression: Headache Qualifiers: Headache type: unspecified Headache chronicity pattern: acute headache I ntractability: not intractable Qualified Code(s): R51.9 - Headache, unspecified Cerumen impaction Qualifiers: Laterality: right Qualified Code(s): H61.21 - Impacted cerumen, right ear Instructions: DI for Cerumen Impaction, DI for Postconcussion Syndrome, DI for Headache Activity Restrictions/Additional Instructions: I am glad you are feeling better. Your exam laboratory studies and imaging studies are reassuring. You may be developing migraine headaches, you did have head injury last January 2024. After concussions migraines may develop in the future. See your family doctor next week for re-evaluation. Return if worse if any questions or concerns. Prescriptions: No Action acetaminophen-codeine 300-15 mg tablet 1 tab PO QID PRN (Reason: pain) Qty: 10 0RF amlodipine 5 mg tablet 5 mg PO DAILY propranolol 80 mg capsule,extended release 24hr 80 mg PO DAILY omeprazole 20 mg capsule,delayed release(DR/EC) 20 mg PO DAILY PRN (Reason: Acid Reflux) losartan 100 mg tablet 100 mg PO DAILY Trulicity 1.5 mg/0.5 mL pen injector 1.5 mg SUBCUT WEEKLY ondansetron 4 mg tablet,disintegrating 4 mg PO Q8H PRN (Reason: nausea and vomiting) Qty: 5 1RF Referrals: Tyler King DO [Primary Care Provider] - Stand Alone Forms: Patient Portal/API/Survey
--- NOTE | 2024-07-25 12:18 | DI.CT.S_ITS ---
PROCEDURE: CT HEAD/BRAIN WO CON INDICATIONS: Right side headache TECHNIQUE: Noncontrast 4.5 mm thick angled axial sections acquired from the foramen magnum to the vertex, with coronal and sagittal reformats. For radiation dose reduction, the following was used: automated exposure control, adjustment of mA and/or kV according to patient size. COMPARISON: [facility], CT, CT HEAD/BRAIN WO CON, 02/14/2024, 15:43. FINDINGS: Image quality: Diagnostic. CSF spaces: Basal cisterns are patent. No extra-axial fluid collections. The ventricles are symmetric in size and shape. Brain: No intracranial bleeds or masses. There is cerebral volume loss for age, with resultant ventricular and sulcal prominence. There are periventricular and deep white matter chronic small vessel ischemic changes. There is intracranial internal carotid artery atherosclerosis. Skull and face: Calvarium and visualized facial bones appear intact, without suspicious lesions. Sinuses: Visualized sinuses and mastoids are clear. IMPRESSION: 1. No acute intracranial process. 2. Moderate atrophy and chronic microvascular ischemic changes. Dictated by: Sadie Amaya M.D. on 07/25/2024 at 12:43 Approved by: Sadie Amaya M.D. on 07/25/2024 at 12:43
[2024-07-25] MEDS: HYDROGEN PEROXIDE 473 ML SOLUTION 30 ML TOP (13:24)
[2024-07-25] MEDS: KETOROLAC 30 MG/ML VIAL 15 MG IV (13:25)
[2024-07-25 13:28] LABS: Add Manual Diff / Slide Review NO; Basophils Absolute Auto 0 /uL (0-100); Basophils Percent Auto 0.4 % (0-2); Eosinophils Absolute Auto 200 /uL (0-450); Eosinophils Percent Auto 2.6 % (2-4); Hematocrit 40.7 % (36-46); Hemoglobin 13.2 g/dL (12.0-16.0); Lymphocytes Absolute Auto 1900 /uL (1100-4500); Lymphocytes Percent Auto 27.2 % (25-40); Mean Corpuscular HGB Conc 32.6 % (30-36); Mean Corpuscular Hemoglobin 27.3 PG (26-34); Mean Corpuscular Volume 83.9 fL (80-100); Monocytes Absolute Auto 400 /uL (0-900); Monocytes Percent Auto 6.2 % (3-14); Neutrophils Absolute Auto 4500 /uL (1500-7000); Neutrophils Percent Auto 63.6 % (50-75); Platelet Count 292 X10^3/uL (150-400); Red Blood Cell Count 4.85 X10^6/uL (4.0-5.2); Red Cell Distribution Width 14.3 % (11.6-14.8)
[2024-07-25 13:41] LABS: Alanine Aminotransferase 48 IU/L (<35); Albumin 4.7 g/dL (3.5-5.0); Albumin Globulin Ratio 1.4 (1.0-2.8); Alkaline Phosphatase 74 U/L (38-126); Aspartate Aminotransferase 48 IU/L (14-36); BUN Creatinine Ratio 26.1 (6-22); Bilirubin Total 0.6 mg/dL (0.2-1.3); Blood Urea Nitrogen 18 mg/dL (7-17); Calcium 9.7 mg/dL (8.4-10.2); Carbon Dioxide 27 mmol/L (22-32); Chloride 102 mmol/L (98-107); Estimated Glomerular Filt Rate > 60 mL/min (>60); Globulin 3.3 g/dL (1.7-4.1); Glucose 132 mg/dL (80-110); HEMOLYSIS < 15 (0-50); Potassium 4.3 mmol/L (3.4-5.1); Sodium 139 mmol/L (137-145)
--- NOTE | 2024-07-25 15:28 | DI.CT.S_ITS ---
PROCEDURE: CT ANGIO HEAD AND NECK INDICATIONS: Right-sided headache TECHNIQUE: After the administration of intravenous contrast, 1 mm thick sections acquired from the aortic arch through the [place] of [place]. 3-dimensional fzducgz-uwkarxozv-fjovehrpaa (MIP) and/or volume rendering reformats were acquired of the central intracranial vasculature and neck separately. For radiation dose reduction, the following was used: automated exposure control, adjustment of mA and/or kV according to patient size. COMPARISON: [facility], CT, CT HEAD/BRAIN WO CON, 07/25/2024, 11:54. FINDINGS: Image quality: Diagnostic. BRAIN: See separately dictated CT head report of 07/25/2024.. HEAD CT ANGIOGRAPHY: Anterior circulation: Intracranial internal carotid arteries are normal in size and flow. The flow within the paired anterior cerebral arteries is normal and symmetric. The flow within the middle cerebral arteries is normal and symmetric. The anterior communicating artery is seen. No aneurysms are seen. Posterior circulation: Prominent left vertebral artery dominance. Visualized portions of the vertebral arteries demonstrate normal caliber, and join to form a normal appearing basilar artery. Flow within the posterior cerebral arteries is normal and symmetric. No aneurysms are seen. NECK CT ANGIOGRAPHY: Carotid system: The great vessels demonstrate a conventional anatomy as they arise from the aortic arch. The origins of the common carotid arteries appear patent. The common carotid arteries demonstrate normal caliber and courses. The bifurcation regions are both widely patent. The internal carotid arteries demonstrate normal calibers and courses. Posterior circulation: The origins of the vertebral arteries both appear widely patent. The more superior extracranial portions of both vertebral arteries also demonstrate normal courses and calibers. They join to form a normal appearing basilar artery. Soft tissues: Visualized neck soft tissues demonstrate no suspicious abnormalities. Bones: No suspicious bony lesions. Visualized cervical spine appears normally aligned. IMPRESSION: No significant intracranial arterial abnormality is seen. No significant abnormality is seen within the arteries of the neck. Any quantitative measurements of stenosis were performed using NASCET criteria. Dictated by: Sadie Amaya M.D. on 07/25/2024 at 16:09 Approved by: Sadie Amaya M.D. on 07/25/2024 at 16:10
[2024-07-25] MEDS: SODIUM CHLORIDE 0.9% FLUSH 50 ML IV (15:45)
== END 2024-07-25 17:29 | disposition home or self-care (01) ==
PROVIDERS: Emergency Provider Emergency Medicine; PCP Family Medicine
DX: R51.9 Headache, unspecified (principal); H61.21 Impacted cerumen, right ear
CPT/HCPCS: 36415; 69209; 70450; 70496; 70498; 80053; 85025; 96374; 99284; J1885; Q9967

== ENCOUNTER 2025-03-22 13:26 | Emergency (ER) | payer MEDICARE, OTHER, SELFPAY ==
[2025-03-22] VITALS (16 sets, daily range): BP systolic 121–164; BP diastolic 67–88; PULSE 81–102; RESP 15–20; TEMP 36.2; O2SAT 93–99; BMI 34.4
--- NOTE | 2025-03-22 13:30 | EKG_ITS ---
[address] [address] Test Date: 2025-03-22 Pat Name: Cristiana Cobb Department: [facility] Room: Gender: Female Installation Helper: KIERA : 1950 Requested By: Order Number: [id number] Reading MD: Sarthak Moon MD Measurements Intervals [place] Rate: 87 P: 67 IA: 172 QRS: 51 QRSD: 84 T: 63 QT: 364 QTc: 438 Interpretive Statements Normal sinus rhythm Electronically Signed On 04-05-2025 8:56:35 PST by Sarthak Moon MD
--- NOTE | 2025-03-22 13:30 | DI.RAD.S_ITS ---
PROCEDURE: XR CHEST 1V INDICATIONS: Chest Pain TECHNIQUE: One view of the chest was acquired. COMPARISON: (Prior imaging is not available for review from the archive at the time of this dictation.) FINDINGS: Surgical changes and devices: None. Lungs and pleura: An incomplete inspiratory result is noted, causing a crowded appearance to the lung markings. No focal infiltrates are seen. No pneumothorax or significant pleural effusions are seen. Mediastinum: Mediastinal contours appear normal. Heart size is normal. Bones and chest wall: No suspicious bony lesions. Age-appropriate bony degenerative changes are seen. Overlying soft tissues appear unremarkable. IMPRESSION: Low lung volumes, without an acute abnormality seen by plain film. Dictated by: Lorenzo Urrutia M.D. on 03/22/2025 at 13:49 Approved by: Lorenzo Urrutia M.D. on 03/22/2025 at 13:49
[2025-03-22 14:01] LABS: Add Manual Diff / Slide Review NO; Hematocrit 39.1 % (36-46); Hemoglobin 13.1 g/dL (12.0-16.0); INR 1.0 (0.9-1.3); Lymphocytes Absolute Auto 2100 /uL (1100-4500); Mean Corpuscular HGB Conc 33.4 % (30-36); Mean Corpuscular Hemoglobin 28.0 PG (26-34); Mean Corpuscular Volume 83.7 fL (80-100); Platelet Count 291 X10^3/uL (150-400); Prothrombin Time 11.6 SECONDS (9.4-12.5)
[2025-03-22 14:03] LABS: PTT Partial Thromboplastin Tim 27 SECONDS (25.1-36.5)
[2025-03-22 14:05] LABS: Alanine Aminotransferase 52 IU/L (<35); Albumin 4.5 g/dL (3.5-5.0); Albumin Globulin Ratio 1.4 (1.0-2.8); Alkaline Phosphatase 64 U/L (38-126); Blood Urea Nitrogen 14 mg/dL (7-17); Calcium 9.4 mg/dL (8.4-10.2); Carbon Dioxide 24 mmol/L (22-32); Chloride 105 mmol/L (98-107); Creatine Kinase 44 U/L (30-135); Estimated Glomerular Filt Rate > 60 mL/min (>60); Globulin 3.2 g/dL (1.7-4.1); Glucose 188 mg/dL (70-99); HEMOLYSIS 17 (0-50); Lipase 61 U/L (23-300); Magnesium 1.4 mg/dL (1.6-2.3); Potassium 3.9 mmol/L (3.4-5.1); Sodium 137 mmol/L (137-145); Total Protein 7.7 g/dL (6.3-8.2)
[2025-03-22 14:17] LABS: NT-proBNP (BNP-Adult 18+) < 20 pg/mL (<125); Troponin I < 0.012 ng/mL (0.01-0.034)
[2025-03-22] MEDS: MAGNESIUM SULFATE 2 GM/50 ML PIGGYBACK IV (17:21)
--- NOTE | 2025-03-22 21:25 | ED.CHESTPAIN ---
HPI - Chest Pain General Chief Complaint: Chest Pain Stated Complaint: chest pain dizzy sob Time Seen by Provider: 03/22/25 16:06 Source: patient Mode of arrival: Family Vehicle Limitations: no limitations History of Present Illness HPI narrative: Patient is a 74-year-old female with history of hypertension, hyperlipidemia, palpitations, diabetes presenting with chest pain and palpitations. Patient states that she often has palpitations and takes propranolol for this, dates that in recent weeks she has had increased chest pain and shortness of breath associated with exertion, this usually resolves following rest. Had recurrence of this on the day of presentation and so presented for further evaluation. Patient denies any chest pain at the time of evaluation. She has had no fevers, cough, syncope. Related Data Home Medications ?Medication ?Instructions ?Recorded ?Confirmed amlodipine 5 mg tablet 5 mg PO DAILY 01/23/23 04/14/24 dulaglutide 1.5 mg/0.5 mL 1.5 mg SUBCUT WEEKLY 01/23/23 01/26/23 subcutaneous pen injector (Trulicity) losartan 100 mg tablet 100 mg PO DAILY 01/23/23 04/14/24 omeprazole 20 mg capsule,delayed 20 mg PO DAILY PRN Acid Reflux 01/23/23 04/14/24 release propranolol 80 mg capsule,24 80 mg PO DAILY 01/23/23 04/14/24 hr,extended release Previous Rx's ?Medication ?Instructions ?Recorded acetaminophen 300 mg-codeine 15 mg 1 tab PO QID PRN pain #10 tabs 01/21/23 tablet ondansetron 4 mg disintegrating 4 mg PO Q8H PRN nausea and 01/26/23 tablet vomiting #5 tabs Allergies Allergy/AdvReac Type Severity Reaction Status Date / Time [id number] Reductase Allergy Mild Verified 03/22/25 13:30 Inhibitor Review of Systems Review of Systems ROS Unobtainable: All systems reviewed & are unremarkable except as noted in HPI and below Constitutional Constitutional: Denies fatigue and Denies malaise Eyes Eyes: Denies diplopia Cardiovascular Cardiovascular: Reports chest pain, Reports chest pain with activity, Reports rapid heart rate and Reports dyspnea on exertion Respiratory Respiratory: Denies pain with cough and Reports dyspnea on exertion Gastrointestinal Gastrointestinal: Denies nausea and Denies vomiting Endocrine Endocrine: Denies fatigue Patient History Medical History GERD (gastroesophageal reflux disease) Hx of breast cancer Hyperlipidemia Hypertension Palpitations Diabetes Surgical History History of reconstruction of right breast H/O mastectomy History of hysterectomy Hx of cholecystectomy H/O section Social History household members: spouse Smoking Status: Never smoker alcohol intake: current Smoking Status: Never smoker alcohol intake frequency: holidays/special occasions only Exam Narrative Exam Narrative: GENERAL: in no distress, not toxic not dyspneic HEAD: Normocephalic. EYES: Pupils equal round ENT: Mucous membranes moist. NECK: Trachea midline. CARDIOVASCULAR: Regular rate and rhythm RESPIRATORY: Clear to auscultation. Breath sounds equal bilaterally. No wheezes, rales, or rhonchi. GASTROINTESTINAL: Abdomen soft, non-tender EXTREMITIES: No gross deformities, no lower extremity peripheral edema. BACK: No flank tenderness. NEURO: AOx4. Clear speech SKIN: Warm and dry PSYCH: Not anxious, is cooperative Initial Vital Signs Initial Vital Signs: Vital Signs Temperature 97.2 F L 03/22/25 13:30 Pulse Rate 102 H 03/22/25 13:30 Respiratory Rate 17 03/22/25 13:30 Blood Pressure 164/88 H 03/22/25 13:30 Pulse Oximetry 99 03/22/25 13:30 Oxygen Delivery Method Room Air 03/22/25 13:30 Scores HEART Score Heart Score history: Slightly Suspicious Heart Score EKG: Normal Heart Score Age: > or = 65 years old Heart Score risk factors: 1-2 risk factors Heart Score troponin: < or = to normal limit Heart Score Total: 3 Course Orders Ordered: ED Orders 03/22/25 13:30 XR chest 1V Stat EKG-12 Lead Stat 03/22/25 13:40 Complete Blood Count AUTO DIFF Stat Comprehensive Metabolic Panel Stat Lipase Stat Magnesium Stat NT-proBNP (BNP-Adult 18+) Stat PTT Partial Thromboplastin Feliz Stat Prothrombin Time INR Stat Troponin & CK Cardiac Panel Stat Discontinued Medications Aspirin (Aspirin 81 Mg Chew Tab) 324 mg PO NOW ONE Stop: 03/22/25 13:30 Magnesium Sulfate (Magnesium Sulfate) 2 gm in 50 mls @ 25 mls/hr IV NOW ONE Stop: 03/22/25 19:10 Last Infusion: 03/22/25 19:00 Dose: Infused Documented By: SHALA Co-signed By: ANGIE Admin: 03/22/25 17:21 Dose: 25 mls/hr Documented By: SHALA Co-signed By: JAJA Vital Signs Vital signs: Vital Signs - 8 hr 03/22/25 13:30 03/22/25 13:51 03/22/25 13:54 Temperature 97.2 F L Pulse Rate 102 H 90 91 H Respiratory Rate 17 Blood Pressure 164/88 H Pulse Oximetry 99 93 95 Oxygen Delivery Method Room Air 03/22/25 13:54 03/22/25 14:00 03/22/25 14:01 Temperature Pulse Rate 93 H Respiratory Rate 17 Blood Pressure 159/88 H 121/84 Pulse Oximetry 93 Oxygen Delivery Method Room Air 03/22/25 14:01 03/22/25 14:13 03/22/25 14:13 Temperature Pulse Rate 95 H 88 Respiratory Rate 15 17 Blood Pressure 146/72 H Pulse Oximetry 94 96 Oxygen Delivery Method 03/22/25 14:30 03/22/25 14:30 03/22/25 15:00 Temperature Pulse Rate 86 Respiratory Rate 20 Blood Pressure 133/70 125/67 Pulse Oximetry 95 Oxygen Delivery Method Room Air 03/22/25 15:00 03/22/25 15:30 03/22/25 15:30 Temperature Pulse Rate 85 87 Respiratory Rate 17 18 Blood Pressure 139/71 Pulse Oximetry 94 95 Oxygen Delivery Method Room Air 03/22/25 16:00 03/22/25 16:00 03/22/25 16:30 Temperature Pulse Rate 83 Respiratory Rate 18 Blood Pressure 129/70 125/74 Pulse Oximetry 93 Oxygen Delivery Method Room Air 03/22/25 16:30 03/22/25 17:00 03/22/25 17:00 Temperature Pulse Rate 82 82 Respiratory Rate 19 15 Blood Pressure 135/67 Pulse Oximetry 94 94 Oxygen Delivery Method 03/22/25 17:30 03/22/25 18:00 03/22/25 18:30 Temperature Pulse Rate 81 83 82 Respiratory Rate 17 17 19 Blood Pressure Pulse Oximetry 94 96 94 Oxygen Delivery Method Room Air 03/22/25 19:00 03/22/25 19:00 Temperature Pulse Rate 88 Respiratory Rate 18 Blood Pressure 144/81 H Pulse Oximetry 94 Oxygen Delivery Method Room Air MDM - Chest Pain Differential Diagnosis Differential diagnosis: Likely pneumothorax, stable angina, atypical chest pain, st elevation myocardial infarction and costochondritis Medical Records Data Attestation: I reviewed the patient's medical records. Lab Data Attestation: I reviewed the patient's lab results. 03/22/25 13:40 03/22/25 13:40 Labs: Lab Results 03/22/25 Range/Units 13:40 WBC 7.3 (4.5-11.0) X10^3/uL RBC 4.67 (4.0-5.2) X10^6/uL Hgb 13.1 (12.0-16.0) g/dL Hct 39.1 (36-46) % MCV 83.7 (80-100) fL MCH 28.0 (26-34) PG MCHC 33.4 (30-36) % RDW 13.5 (11.6-14.8) % Plt Count 291 (150-400) X10^3/uL Neut % (Auto) 61.3 (50-75) % Lymph % (Auto) 28.4 (25-40) % [place] % (Auto) 7.4 (3-14) % Eos % (Auto) 2.3 (2-4) % Baso % (Auto) 0.6 (0-2) % Neut # (Auto) 4500 (1908-3199) /uL Lymph # (Auto) 2100 (2730-9169) /uL [place] # (Auto) 500 (0-900) /uL Eos # (Auto) 200 (0-450) /uL Baso # (Auto) 0 (0-100) /uL PT 11.6 (9.4-12.5) SECONDS INR 1.0 (0.9-1.3) APTT 27 (25.1-36.5) SECONDS Sodium 137 (137-145) mmol/L Potassium 3.9 (3.4-5.1) mmol/L Chloride 105 (98-107) mmol/L Carbon Dioxide 24 (22-32) mmol/L BUN 14 (7-17) mg/dL Creatinine 0.56 (0.52-1.04) mg/dL Estimated GFR > 60 (>60) mL/min BUN/Creatinine Ratio 25.0 H (6-22) Glucose 188 H (70-99) mg/dL Calcium 9.4 (8.4-10.2) mg/dL Magnesium 1.4 L (1.6-2.3) mg/dL Total Bilirubin 0.4 (0.2-1.3) mg/dL AST 46 H (14-36) IU/L ALT 52 H (<35) IU/L Alkaline Phosphatase 64 (38-126) U/L Total Creatine Kinase 44 (30-135) U/L Troponin I < 0.012 (0.01-0.034) ng/mL NT-Pro-B Natriuret Pep < 20 (<125) pg/mL Total Protein 7.7 (6.3-8.2) g/dL Albumin 4.5 (3.5-5.0) g/dL Globulin 3.2 (1.7-4.1) g/dL Albumin/Globulin Ratio 1.4 (1.0-2.8) Lipase 61 (23-300) U/L ECG Data Attestation: I personally reviewed and interpreted this ECG as follows: MDM Narrative Medical decision making narrative: History and exam as above. Patient presenting with chest pain and shortness of breath with exertion. Differential for presentation includes stable angina, CHF, less likely to represent ACS, PE, no fevers, cough to suggest pneumonia. Patient well-appearing and in no acute distress at the time of evaluation, does have cardiology follow-up scheduled. Suspect will likely be able to discharge following workup with close cardiology workup and PCP evaluation. Discharge Plan Departure Patient Disposition: Home Clinical Impression: Chest pain Qualifiers: Chest pain type: other chest pain Qualified Code(s): R07.89 - Other chest pain Instructions: DI for Atypical Chest Pain Activity Restrictions/Additional Instructions: You were seen in the emergency department for your chest discomfort and palpitations. Evaluation here included examination, lab work, and EKG. The workup was overall reassuring and did not demonstrate any evidence of an acute injury to your heart. This being said we do feel it is important that you follow-up closely with your health education teacher for further evaluation and management in the outpatient setting. If you develop recurrent chest pain, shortness of breath, lightheadedness, syncope, persistent palpitations, or other symptoms that are concerning to you, please return to the emergency department for further evaluation. Prescriptions: No Action acetaminophen-codeine 300-15 mg tablet 1 tab PO QID PRN (Reason: pain) Qty: 10 0RF amlodipine 5 mg tablet 5 mg PO DAILY propranolol 80 mg capsule,extended release 24hr 80 mg PO DAILY omeprazole 20 mg capsule,delayed release(DR/EC) 20 mg PO DAILY PRN (Reason: Acid Reflux) losartan 100 mg tablet 100 mg PO DAILY Trulicity 1.5 mg/0.5 mL pen injector 1.5 mg SUBCUT WEEKLY ondansetron 4 mg tablet,disintegrating 4 mg PO Q8H PRN (Reason: nausea and vomiting) Qty: 5 1RF Referrals: Rashel Chowdhury MD [Physician, Cardiology] Tyler King DO [Primary Care Provider, Family Practice] Stand Alone Forms: Patient Portal/API
== END 2025-03-22 19:23 | disposition home or self-care (01) ==
PROVIDERS: Emergency Provider Student in an Organized Health Care Education/Training Program; PCP Family Medicine
DX: R07.89 Other chest pain (principal); R06.02 Shortness of breath; I10 Essential (primary) hypertension
CPT/HCPCS: 36415; 71045; 80053; 82550; 83690; 83735; 83880; 84484; 85025; 85610; 85730; 93005; 96365; 96366; 99284; J3475